=== PATIENT | female | born 1970 | race African-American/Black ===

== ENCOUNTER 2022-12-10 22:25 | Emergency (ER) | payer OTHER ==
[2022-12-11 17:44] LABS: HBCM Index 0.06 S/CO (0-0.79); HIV (1/2) Antibody/Antigen Non-Reactive (NonReactive); HIV 1/2 INDEX 0.07 S/CO (<1.00); Hep A IgM AB Non-Reactive S/CO (NonReactive); Hep A IgM S/CO 0.22 S/CO (0-0.79); Hep B Surf Ag Non-Reactive S/CO (NonReactive); Hep C IgG Ab Non-Reactive S/CO (NonReactive); Hep C Index 0.07 S/CO (0-0.79); Hepatitis B Core IgM Abs Non-Reactive S/CO (NonReactive)
== END 2022-12-11 00:06 | disposition home or self-care (01) ==
LOC: NAV ERS 22:25
DX: R15.1 Fecal smearing (principal); I10 Essential (primary) hypertension; E11.9 Type 2 diabetes mellitus without complications; Z79.84 Long term (current) use of oral hypoglycemic drugs
CPT/HCPCS: 80074; 87389; 99283

== ENCOUNTER 2023-05-03 00:28 | Emergency (ER) | payer BC, OTHER | END 2023-05-03 03:22 | disposition home or self-care (01) | LOC: NAV ERS 00:28 | DX: S82.51XA Displaced fracture of medial malleolus of right tibia, initial encounter for closed fracture (principal); E11.9 Type 2 diabetes mellitus without complications; I10 Essential (primary) hypertension; Z79.84 Long term (current) use of oral hypoglycemic drugs; Z79.899 Other long term (current) drug therapy; W18.30XA Fall on same level, unspecified, initial encounter ==